=== PATIENT | female | born 1960 | race Two or more races ===

== ENCOUNTER 2017-09-16 09:58 | Emergency (ER) | payer MEDICAID ==
[~2017-09-16] VITALS: Ht 167.6 cm; Wt 174.6 kg
[2017-09-16 10:04] VITALS: BP 149/55
== END 2017-09-16 10:39 | disposition home or self-care (01) ==
LOC: ER 09:58
DX: F32.9 Major depressive disorder, single episode, unspecified (principal); M79.7 Fibromyalgia; M19.90 Unspecified osteoarthritis, unspecified site; Z76.0 Encounter for issue of repeat prescription; Z88.8 Allergy status to other drugs, medicaments and biological substances